=== PATIENT | female | born 1990 | race Asian ===

== ENCOUNTER 2022-06-15 18:40 | Emergency (ER) | payer OTHER ==
[~2022-06-15] VITALS: Ht 170.2 cm; Wt 86.2 kg
[2022-06-15 18:46] VITALS: BP 120/73; TEMP 98.1
== END 2022-06-15 19:31 | disposition home or self-care (01) ==
LOC: ED 18:40
DX: O26.891 Other specified pregnancy related conditions, first trimester (principal)
CPT/HCPCS: 80307; 81000; 81025; 87490; 87590; 99283

== ENCOUNTER 2023-02-06 19:52 | Emergency (ER) | payer OTHER ==
[~2023-02-06] VITALS: Ht 170.2 cm; Wt 111.1 kg
[2023-02-06 22:23] VITALS: BP 127/74; TEMP 98.7
[2023-02-07] MEDS ORDERED: SERTRALINE HYD100 MG PO (05:56)
[2023-02-07] MEDS ORDERED: ACYCLOVIR800 MG PO (05:56)
== END 2023-02-06 22:23 | disposition home or self-care (01) ==
LOC: ED 19:52
DX: U07.1 COVID-19 (principal); G47.30 Sleep apnea, unspecified
CPT/HCPCS: 87635; 99282; U0003